=== PATIENT | female | born 1940 | race African-American/Black ===

== ENCOUNTER 2017-05-14 09:14 | Emergency (ER) | payer MEDICARE, OTHER ==
[~2017-05-14] VITALS: Ht 162.6 cm; Wt 80.0 kg
[~2017-05-14 09:14] MED LIST: AMAR2TAB PO; ATEN1TAB74 PO; HYDR12.56 PO; LEVO75TA42 PO; OXYB5TAB PO; PIOG15 PO; PRIN10TA PO; SIMV20 PO; VISI0.053 EACH EYE
[2017-05-14 09:18] VITALS: BP 162/67; PULSE 71; RESP 20; TEMP 98.5; O2SAT 97
--- NOTE | 2017-05-14 09:38 | PD ---
HPI Chief Complaint: Edema Time Seen by Provider: 09:34 Travel History International Travel<30 days: No Contact w/Intl Traveler<30days: No Traveled to known affect area: No History of Present Illness HPI 76-year-old female with history of hypertension, presents to the ER today because she started having left foot pains about 4 days ago, starting on his own and now is having right foot pains as well. Pain is mostly centered around her big toes. She does not remember any injuries. She denies any other issues. She denies any fevers, chest pains, shortness of breath, or other symptoms. Modifying Factors: None Associated Signs & Symptoms: Bilateral foot pain Risk Factors: None PFSH Past Medical History Heart Rhythm Problems: Yes (PALPITATION) Cancer: No Cardiac Catheterization: No Cardiovascular Problems: Yes High Cholesterol: Yes Congestive Heart Failure: No Diabetes: Yes Patient Takes Glucophage: No Diminished Hearing: Yes Glaucoma: No Hepatitis: No Hiatal Hernia: No Hypertension: Yes Respiratory: No Thyroid Disease: Yes ?: Not Menopausal: Yes Past Surgical History Coronary Artery Bypass Graft: No Eye Surgery: Yes (Right eye) Hysterectomy: Yes Pacemaker: No Other Surgery: No Family History Family Myocardial Infarction: Yes (FATHER) Social History Alcohol Use: No Tobacco Use: No Substance Use: No Allergies-Medications (Allergen,Severity, Reaction): Coded Allergies: lidocaine (Unverified Allergy, Mild, 05/14/17) ALLERGIC TO NOVOCAINE ONLY NOT LIDOCAINE Uncoded Allergies: NOVOCAINE (Allergy, Severe, ALLERGIC TO NOVOCAINE NOT LIDOCAINE, 03/25/10) Reported Meds & Prescriptions Reported Meds & Active Scripts Active Reported Combigan Opth Drops (Brimonidine-Timolol Opth Drops) 0.2-0.5% Soln 1 Drop EACH EYE Q12HR Ditropan (Oxybutynin Chloride) 5 Mg Tab 5 Mg PO Q12HR Levothyroxine (Levothyroxine Sodium) 137 Mcg Tab 137 Mcg PO DAILY Atorvastatin (Atorvastatin Calcium) 10 Mg Tab 10 Mg PO HS Pantoprazole (Pantoprazole Sodium) 40 Mg Tab 40 Mg PO DAILY Hydrochlorothiazide 12.5 Mg Tab 12.5 Mg PO DAILY Pioglitazone (Pioglitazone HCl) 15 Mg Tab 15 Mg PO DAILY Atenolol 50 Mg Tab 50 Mg PO DAILY Glimepiride 2 Mg Tab 2 Mg PO DAILY Take with breakfast or first main meal Lisinopril 10 Mg Tab 10 Mg PO DAILY Review of Systems Except as stated in HPI: all other systems reviewed are Neg Physical Exam Narrative GENERAL: Well-developed elderly after [place] female patient currently in no acute distress. Awake and oriented 3. SKIN: Focused skin assessment warm/dry. HEAD: Atraumatic. Normocephalic. EYES: Pupils equal and round. No scleral icterus. No injection or drainage. ENT: No nasal bleeding or discharge. Mucous membranes pink and moist. NECK: Trachea midline. No JVD. CARDIOVASCULAR: Regular rate and rhythm. No murmur appreciated. RESPIRATORY: No accessory muscle use. Clear to auscultation. Breath sounds equal bilaterally. GASTROINTESTINAL: Abdomen soft, non-tender, nondistended. Hepatic and splenic margins not palpable. MUSCULOSKELETAL: No obvious deformities. No clubbing. No cyanosis. No edema. EXTREMITIES: No clubbing, cyanosis, or edema. She is tender to palpation of both first toe base of the metatarsal area. There is no significant erythema. Neurovascularly intact. Ankle joints are nontender to palpation with nontender range of motion. No calf tenderness. NEUROLOGICAL: Awake and alert. No obvious cranial nerve deficits. Motor grossly within normal limits. Normal speech. PSYCHIATRIC: Appropriate mood and affect; insight and judgment normal. Data Data Last Documented VS Vital Signs Date Time Temp Pulse Resp B/P (MAP) Pulse Ox O2 Delivery O2 Flow Rate FiO2 05/14/17 09:27 75 100 Room Air 05/14/17 09:18 98.5 20 162/67 (98) Orders Orders Indomethacin (Indocin) (05/14/17 09:45) Foot, Complete (Xdv2sup) (05/14/17 09:34) Foot, Complete (Qng9one) (05/14/17 09:34) [facility] Medical Decision Making Medical Screen Exam Complete: Yes Emergency Medical Condition: Yes Medical Record Reviewed: Yes Interpretation(s) Last 24 hours Impressions Foot X-Ray 05/14/17933 Signed Impressions: Service Date/Time: May 09:56 - CONCLUSION: Unremarkable examination of the right foot. Small plantar spur. Gage Penny MD Foot X-Ray 05/14/17933 Signed Impressions: Service Date/Time: Thursday, May 14, 2017 09:59 - CONCLUSION: 1. No acute fracture or dislocation. Alex Gifford MD Differential Diagnosis Osteoarthritis versus gouty arthritis versus fractures Narrative Course X-rays did not show any signs of acute fractures or other acute processes. Symptoms are more indicative of a gouty arthritis especially at the site. At this point, patient had been given Indocin and on reevaluation at 10:50 AM, she is feeling improved. My plan would be to release her with symptomatically relief or pain and follow-up to primary care physician. Return for any worsening in symptoms as needed. The plan has been discussed with her and she states understanding. Diagnosis Primary Impression: Arthritis of big toe Med/Other Pt SpecificInfo: Prescription(s) given Scripts Indomethacin (Indomethacin) 50 Mg Cap 50 MG PO TID for 7 Days, CAP 0 Refills Take with food, milk, or antacids to decrease stomach adverse effects. Prov: True Leyva MD 05/14/17 Disposition: 01 DISCHARGE HOME Condition: Stable True Leyva MD May 14, 2017 09:38
[2017-05-14] MEDS ORDERED: LEVO137T2 PO (09:39)
[2017-05-14] MEDS ORDERED: HYDR12.56 PO (09:39)
[2017-05-14] MEDS ORDERED: GLIM2TAB PO (09:39)
[2017-05-14] MEDS ORDERED: OXYB5TAB10 PO (09:39)
[2017-05-14] MEDS ORDERED: PIOG15TA5 PO (09:39)
[2017-05-14] MEDS ORDERED: ATEN50TA PO (09:39)
[2017-05-14] MEDS ORDERED: PANT40TA3 PO (09:39)
[2017-05-14] MEDS ORDERED: COMB0.2S EACH EYE (09:39)
[2017-05-14] MEDS ORDERED: LISI10TA3 PO (09:39)
[2017-05-14] MEDS ORDERED: ATOR10TA15 PO (09:39)
[2017-05-14] MEDS ORDERED: INDOMETHACIN 50 MG CAP PO ONE (09:45)
--- NOTE | 2017-05-14 10:10 | RADRPT ---
EXAM DATE/TIME: 05/14/2017 09:56 [facility] COMPARISON: No previous studies available for comparison. INDICATIONS : Right foot pain. MEDICAL HISTORY : Diabetes mellitus type II. SURGICAL HISTORY : None. ENCOUNTER: Initial ACUITY: 1 week PAIN SCORE: 2/10 LOCATION: Right toes FINDINGS: Three view examination of the right foot demonstrates no soft tissue swelling, dislocation, or fractu re. The tarsal bones appear intact. The interphalangeal and metatarsophalangeal joints are intact. The calcaneus is intact. Bony mineralization is normal. CONCLUSION: Unremarkable examination of the right foot. Small plantar spur. Gage Penny MD on May 14, 2017 at 10:08 Board Certified Radiologist. This report was verified electronically.
--- NOTE | 2017-05-14 10:17 | RADRPT ---
EXAM DATE/TIME: 05/14/2017 09:59 [facility] COMPARISON: No previous studies available for comparison. INDICATIONS : Left foot pain. MEDICAL HISTORY : Diabetes mellitus type II. SURGICAL HISTORY : None. ENCOUNTER: Initial ACUITY: 1 week PAIN SCORE: 2/10 LOCATION: Left toes FINDINGS: Three view examination of the left foot demonstrates no soft tissue swelling, dislocation, or fractur e. The tarsal bones appear intact. The interphalangeal and metatarsophalangeal joints are intact. The calcaneus is intact. Mild plantar calcaneal spurring. Bony mineralization is normal. CONCLUSION: 1. No acute fracture or dislocation. Alex Gifford MD on May 14, 2017 at 10:13 Board Certified Radiologist. This report was verified electronically.
[2017-05-14] MEDS ORDERED: INDO50CA PO (11:00)
== END 2017-05-14 11:20 | disposition home or self-care (01) ==
LOC: NEPE 09:14
DX: M19.072 Primary osteoarthritis, left ankle and foot (principal); E11.9 Type 2 diabetes mellitus without complications; I10 Essential (primary) hypertension; E78.00 Pure hypercholesterolemia, unspecified
CPT/HCPCS: 73630; 99283

== ENCOUNTER 2017-07-07 23:35 | Emergency (ER) | payer MEDICARE, OTHER ==
[~2017-07-07] VITALS: Ht 160 cm; Wt 80.0 kg
[~2017-07-07 23:35] MED LIST changes: -AMAR2TAB PO; -ATEN1TAB74 PO; +ATEN50TA PO; +ATOR10TA15 PO; +COMB0.2S EACH EYE; +GLIM2TAB PO; +INDO50CA PO; +LEVO137T2 PO; -LEVO75TA42 PO; +LISI10TA3 PO; -OXYB5TAB PO; +OXYB5TAB8 PO; +PANT40TA3 PO; -PIOG15 PO; +PIOG15TA5 PO; -PRIN10TA PO; -SIMV20 PO; -VISI0.053 EACH EYE
[2017-07-07 23:38] VITALS: BP 177/81; PULSE 64; RESP 16; TEMP 98.7; O2SAT 95
--- NOTE | 2017-07-08 01:36 | PD ---
HPI Chief Complaint: Fall Time Seen by Provider: 00:31 Travel History International Travel<30 days: No Contact w/Intl Traveler<30days: No Traveled to known affect area: No History of Present Illness HPI S/P MECH FALL, LANDED ON LEFT SIDE OF BODY (KNEE AND HEAD) PFSH Past Medical History Heart Rhythm Problems: Yes (PALPITATION) Cancer: No Cardiac Catheterization: No Cardiovascular Problems: Yes High Cholesterol: Yes Congestive Heart Failure: No Diabetes: Yes Patient Takes Glucophage: Yes Diminished Hearing: Yes Glaucoma: No Hepatitis: No Hiatal Hernia: No Hypertension: Yes Respiratory: No Thyroid Disease: Yes Tetanus Vaccination: Unknown Influenza Vaccination: No Menopausal: Yes Past Surgical History Coronary Artery Bypass Graft: No Eye Surgery: Yes (Right eye) Hysterectomy: Yes Pacemaker: No Other Surgery: No Family History Family Myocardial Infarction: Yes (FATHER) Social History Alcohol Use: No Tobacco Use: No Substance Use: No Allergies-Medications (Allergen,Severity, Reaction): Coded Allergies: lidocaine (Unverified Allergy, Mild, 07/07/17) ALLERGIC TO NOVOCAINE ONLY NOT LIDOCAINE Uncoded Allergies: NOVOCAINE (Allergy, Severe, ALLERGIC TO NOVOCAINE NOT LIDOCAINE, 03/25/10) Reported Meds & Prescriptions Reported Meds & Active Scripts Active Ultram (Tramadol HCl) 50 Mg Tab 50 Mg PO Q6H PRN Indomethacin 50 Mg Cap 50 Mg PO TID 7 Days Take with food, milk, or antacids to decrease stomach adverse effects. Reported Combigan Opth Drops (Brimonidine-Timolol Opth Drops) 0.2-0.5% Soln 1 Drop EACH EYE Q12HR Ditropan (Oxybutynin Chloride) 5 Mg Tab 5 Mg PO Q12HR Levothyroxine (Levothyroxine Sodium) 137 Mcg Tab 137 Mcg PO DAILY Atorvastatin (Atorvastatin Calcium) 10 Mg Tab 10 Mg PO HS Pantoprazole (Pantoprazole Sodium) 40 Mg Tab 40 Mg PO DAILY Hydrochlorothiazide 12.5 Mg Tab 12.5 Mg PO DAILY Pioglitazone (Pioglitazone HCl) 15 Mg Tab 15 Mg PO DAILY Atenolol 50 Mg Tab 50 Mg PO DAILY Glimepiride 2 Mg Tab 2 Mg PO DAILY Take with breakfast or first main meal Lisinopril 10 Mg Tab 10 Mg PO DAILY Review of Systems Except as stated in HPI: all other systems reviewed are Neg HENT: Positive: Headaches Musculoskeletal: Positive: Pain (LEFT KNEE AND TABOR AREA PAIN) Physical Exam Narrative GENERAL: SKIN: Warm and dry. HEAD: Atraumatic. Normocephalic. EYES: Pupils equal and round. No scleral icterus. No injection or drainage. ENT: No nasal bleeding or discharge. Mucous membranes pink and moist. NECK: Trachea midline. No JVD. CARDIOVASCULAR: Regular rate and rhythm. RESPIRATORY: No accessory muscle use. Clear to auscultation. Breath sounds equal bilaterally. GASTROINTESTINAL: Abdomen soft, non-tender, nondistended. MUSCULOSKELETAL: Extremities without clubbing, cyanosis, or edema. No obvious deformities. NEUROLOGICAL: Awake and alert. No obvious cranial nerve deficits. Motor grossly within normal limits. Five out of 5 muscle strength in the arms and legs. Normal speech. PSYCHIATRIC: Appropriate mood and affect; insight and judgment normal. Data Data Last Documented VS Orders Orders Ct Brain W/O Iv Contrast(Rout) (07/08/17 01:15) Knee, Ltd (1 Or 2vws) (07/08/17 ) Tibia/Fibula (Ap/Lat) (07/08/17 ) Ed Discharge Order (07/08/17 02:52) MDM Medical Decision Making Medical Screen Exam Complete: Yes Emergency Medical Condition: Yes Medical Record Reviewed: Yes Differential Diagnosis ICH V SKULL FX V KNEE FX V KNEE DISLOCATION/SUBLUXATION Narrative Course ct head neg for ich or skull fx, knee xray neg for fx/dislocation and tib fib also neg for fx or dislocation Diagnosis Primary Impression: Scalp contusion Qualified Codes: S00.03XA - Contusion of scalp, initial encounter Additional Impression: KNEE LEFT CONTUSION Patient Instructions: Contusion in Adults (ED), General Instructions, Scalp Contusion in Adults (ED) Scripts Tramadol (Ultram) 50 Mg Tab 50 MG PO Q6H Y for PAIN, #10 TAB 0 Refills Prov: Ceasar Chu MD 07/08/17 Disposition: DISCHARGE HOME Condition: Stable Ceasar Chu MD Jul 08, 2017 01:36
--- NOTE | 2017-07-08 02:02 | RADRPT ---
EXAM DATE/TIME: 07/08/2017 01:31 [facility] COMPARISON: No previous studies available for comparison. INDICATIONS : Knee pain from fall. MEDICAL HISTORY : None. SURGICAL HISTORY : None. ENCOUNTER: Initial ACUITY: 1 day PAIN SCORE: 0/10 LOCATION: Left knee FINDINGS: There is no evidence of acute fracture. Bony mineralization is normal. There is no evidence of joint effusion. There is dystrophic calcification involving the patella ligament. Joint spaces are maintain ed. CONCLUSION: 1. There is no evidence of acute fracture. Nasir Gallo MD on July 08, 2017 at 2:00 Board Certified Radiologist. This report was verified electronically.
--- NOTE | 2017-07-08 02:02 | RADRPT ---
EXAM DATE/TIME: 07/08/2017 01:26 [facility] COMPARISON: No previous studies available for comparison. INDICATIONS : Pain at knee, from fall. MEDICAL HISTORY : None. SURGICAL HISTORY : None. ENCOUNTER: Initial ACUITY: 1 day PAIN SCORE: 0/10 LOCATION: Left knee FINDINGS: Two view examination of the left tibia demonstrates no evidence of fracture or dislocation. Bony min eralization is normal. The soft tissue structures are intact. An inferior calcaneal spur is present. There is calcification in the patellar ligament which appears chronic CONCLUSION: 1. There is no evidence of acute fracture. Nasir Gallo MD on July 08, 2017 at 1:59 Board Certified Radiologist. This report was verified electronically.
--- NOTE | 2017-07-08 02:11 | RADRPT ---
EXAM DATE/TIME: 07/08/2017 02:00 [facility] COMPARISON: No previous studies available for comparison. INDICATIONS : Patient fell, hit back of head. RADIATION DOSE: 31.74 CTDIvol (mGy) MEDICAL HISTORY : Cardiovascular disease. Hypertension. Diabetes. SURGICAL HISTORY : None. ENCOUNTER: Initial ACUITY: 1 day PAIN SCALE: 8/10 LOCATION: cranial TECHNIQUE: Multiple contiguous axial images were obtained of the head. Using automated exposure control and adj ustment of the mA and/or kV according to patient size, radiation dose was kept as low as reasonably a chievable to obtain optimal diagnostic quality images. DICOM format image data is available electro nically for review and comparison. FINDINGS: CEREBRUM: The ventricles are normal for age. No evidence of midline shift, mass lesion, hemorrhage or acute in farction. No extra-axial fluid collections are seen. POSTERIOR FOSSA: The cerebellum and brainstem are intact. The 4th ventricle is midline. The cerebellopontine angle i s unremarkable. EXTRACRANIAL: The visualized portion of the orbits is intact. SKULL: The calvaria is intact. No evidence of skull fracture. CONCLUSION: 1. No evidence of acute intracranial pathology. No masses are identified. Nasir Gallo MD on July 08, 2017 at 2:09 Board Certified Radiologist. This report was verified electronically.
[2017-07-08] MEDS ORDERED: TRAM50 PO (02:56)
== END 2017-07-08 03:16 | disposition home or self-care (01) ==
LOC: NEPC 23:35
DX: S00.03XA Contusion of scalp, initial encounter (principal); S80.02XA Contusion of left knee, initial encounter; E78.00 Pure hypercholesterolemia, unspecified; E11.9 Type 2 diabetes mellitus without complications; I10 Essential (primary) hypertension; E07.9 Disorder of thyroid, unspecified; W19.XXXA Unspecified fall, initial encounter; Z79.899 Other long term (current) drug therapy; Z88.8 Allergy status to other drugs, medicaments and biological substances
CPT/HCPCS: 70450; 73560; 73590; 99285